=== PATIENT | female | born 1980 | race Caucasian/White ===

== ENCOUNTER 2021-04-20 07:06 | Emergency (ER) | payer OTHER ==
[~2021-04-20] VITALS: Ht 160 cm; Wt 84.0 kg
[2021-04-20] MEDS ORDERED: IBUP-2028 MT (07:21)
[2021-04-20] MEDS ORDERED: IBUPROFEN 400MG TABLET PO SCH (07:30)
== END 2021-04-22 07:38 | disposition home or self-care (01) ==
LOC: ER 07:06
DX: R51.9 Headache, unspecified (principal)
CPT/HCPCS: 99282